=== PATIENT | female | born 1995 | race Asian ===

== ENCOUNTER 2024-06-19 07:30 | Emergency (ER) | payer OTHER ==
[~2024-06-19] VITALS: Ht 154.9 cm; Wt 70.8 kg
[2024-06-19 07:37] VITALS: BP 118/75; PULSE 75; RESP 18; TEMP 98.3
== END 2024-06-19 08:20 | disposition home or self-care (01) ==
LOC: EMS 07:30
DX: S61.512A Laceration without foreign body of left wrist, initial encounter (principal); W26.8XXA Contact with other sharp object(s), not elsewhere classified, initial encounter; Y93.89 Activity, other specified; Y92.89 Other specified places as the place of occurrence of the external cause; Y99.8 Other external cause status
CPT/HCPCS: 12002; 99282; Z7502